=== PATIENT | male | born 1965 | race Caucasian/White ===

== ENCOUNTER → 2018-02-08 15:17 | Outpatient (CLI) | payer BC, SELFPAY ==
--- NOTE | 2018-02-08 15:30 | US_ITS ---
US kidney retroperitoneal comp HISTORY: ITS.REASON: HEMATURIA, ORDERING PHYSICIAN: Dwight Feng JR PATIENT AGE: 53 years Comparison: None FINDINGS: The right kidney is 9.4 x 4.2 x 4.8 cm. There is a 1.5 cm cyst along the upper pole. No hydronephrosis. The left kidney is 9.7 x 4.7 x 6 cm and has an unremarkable appearance. No hydronephrosis No renal mass or cortical thinning. IMPRESSION: Small right renal cyst otherwise negative renal ultrasound
== END ==
PROVIDERS: Family Provider Internal Medicine Adolescent Medicine; PCP Family Medicine; Visit Provider Urology
DX: R31.9 Hematuria, unspecified (principal)
CPT/HCPCS: 76770